=== PATIENT | female | born 1975 | race Two or more races ===

== ENCOUNTER → 2018-09-12 | Outpatient (CLI) | payer OTHER ==
--- NOTE | 2018-09-12 17:05 | RAD ---
Exam : Lumbar spine 09/12/2018. Comparison: None. Indication: Pain. Findings: 3 views of the lumbar spine demonstrate no acute fracture or subluxation. There are five lumbar type vertebral bodies. The alignment is within normal limits. The vertebral bodies demonstrate normal height. Mild disc height loss at L5-S1 with endplate sclerosis and anterior marginal osteophytosis. Mild atherosclerosis of the abdominal aorta. Impression: Mild lumbar spondylosis, most prominent at L5-S1. Electronically signed by: Bren Donaldson MD (09/12/2018 5:01 PM) [id number]
--- NOTE | 2018-09-12 17:05 | RAD ---
Right hand radiograph 09/12/2018 3:52 PM INDICATION: Right hand pain COMPARISON: None available. TECHNIQUE: 2 views of the right hand are provided. FINDINGS: There is no acute fracture or dislocation. Bone mineralization is within normal limits. Joint spaces are maintained. Regional soft tissues are within normal limits. There is no soft tissue gas or osseous erosion. IMPRESSION: No acute fracture or dislocation. Electronically signed by: Bren Donaldson MD (09/12/2018 5:00 PM) [id number]
== END | disposition home or self-care (01) ==
LOC: RAD 15:11
PROVIDERS: ATTEND Emergency Medicine
DX: M47.817 Spondylosis without myelopathy or radiculopathy, lumbosacral region (principal); M79.641 Pain in right hand; I70.0 Atherosclerosis of aorta
CPT/HCPCS: 72100; 73120